=== PATIENT | female | born 1970 | race Caucasian/White ===

== ENCOUNTER → 2017-05-29 15:25 | Outpatient (CLI) | payer MEDICAID, SELFPAY ==
--- NOTE | 2017-05-29 15:41 | MM_ITS ---
MM Dig screening mamm BI w/CAD CAD Screening ORDERING PHYSICIAN : Cedric Sanchez MD PATIENT AGE: 46 years GENDER: Female COMPARISON: Previous mammograms: June 2012 . & INDICATION: Screening. 46-year-old. No hormones no new complaints. Noncontributory family history. . TECHNIQUE: Standard CC and MLO images were obtained. R2 CAD reviewed. FINDINGS: Mild/ Moderate breast density. Mild asymmetry but no. Dominant mass nor suspicious calcifications in either breast. No significant or concerning new findings RIGHT BREAST:Stable. Follow up one year LEFT BREAST:No significant new findings. More evident fibroglandular elements are seen towards upper-outer quadrant of the left breast but the pattern is unchanged since 2014 MLO views. No significant new findings. Follow-up one year adequate IMPRESSION: Stable mild asymmetry with no significant new findings. BI-RADS Category: 2 Benign Finding(s) RECOMMENDED FOLLOW-UP: 1YR - 1 YEAR FOLLOW-UP Follow-up in one year recommended (A letter has been sent to the patient regarding results of the study.) .
== END ==
PROVIDERS: Family Provider Emergency Medicine; PCP Emergency Medicine; Visit Provider Emergency Medicine
DX: Z12.31 Encounter for screening mammogram for malignant neoplasm of breast (principal)
CPT/HCPCS: 77067

== ENCOUNTER → 2017-06-02 14:34 | Outpatient (CLI) | payer MEDICAID, SELFPAY ==
[2017-06-02 15:18] LABS: Amphetamine/Metha Screen,Urine Negative ng/mL (<1000); Barbiturates Screen,Urine Negative ng/mL (<200); Benzodiazepines Screen,Urine Negative ng/mL (200); Cannabinoid Screen,Urine Negative ng/mL (<50); Cocaine Screen,Urine Negative ng/g (<300); Methadone Screen,Urine Negative ng/mL (<300); Opiate Screen,Urine Positive ng/mL (<300); Phencyclidine Screen,Urine Negative ng/mL (<25)
[2017-06-17 10:16] LABS: Alprazolam Negative (Cutoff=100); Benzodiazepines Negative ng/mL (Cutoff=100); Clonazepam Negative (Cutoff=100); Codeine Negative (Cutoff=100); Flurazepam Negative (Cutoff=100); Hydrocodone Positive (.); Hydromorphone Negative (Cutoff=100); Lorazepam Negative (Cutoff=100); Midazolam Negative (Cutoff=100); Morphine Negative (Cutoff=100); Temazepam Negative (Cutoff=100); Triazolam Negative (Cutoff=100)
[2017-06-17 13:35] LABS: Opiates Positive (.)
== END ==
PROVIDERS: Nurse Practitioner Family; Visit Provider Emergency Medicine
DX: F41.9 Anxiety disorder, unspecified (principal)
CPT/HCPCS: 80305; 80361; G0480

== ENCOUNTER → 2017-06-11 13:45 | Outpatient (CLI) | payer MEDICAID, SELFPAY ==
--- NOTE | 2017-06-11 13:48 | XR_ITS ---
XR knee RT 4V HISTORY: ITS.REASON: right knee pain ORDERING PHYSICIAN: Pro Bran MD PATIENT AGE: 46 years COMPARISON: None FINDINGS: Weightbearing views are performed. There is slight decrease of the joint space medially. No other significant anomalies evident. No fracture or dislocation. No lytic or blastic change. Normal mineralization. IMPRESSION: Minimal osteoarthritic change medial compartment
--- NOTE | 2017-06-11 13:48 | XR_ITS ---
XR knee LT 4V HISTORY: ITS.REASON: left knee pain ORDERING PHYSICIAN: Pro Bran MD PATIENT AGE: 46 years COMPARISON: None FINDINGS: Weightbearing views are performed. No fracture or dislocation. No lytic or blastic change. Normal mineralization. No significant arthritic changes evident. No other significant findings IMPRESSION: Negative left Knee
== END ==
PROVIDERS: PCP Emergency Medicine; Visit Provider Orthopaedic Surgery
DX: M25.561 Pain in right knee (principal); M25.562 Pain in left knee
CPT/HCPCS: 73564

== ENCOUNTER 2017-06-11 15:00 | Outpatient (RCR) | payer MEDICAID, SELFPAY ==
--- NOTE | 2017-06-09 09:46 | HMH.PTOPEV ---
Rehab Outpatient Evaluation Rehab OP Evaluation Start: 06/09/17 09:31 Freq: Status: Active Protocol: Document 06/09/17 09:31 JUAN ANTONIO (Rec: 06/09/17 09:45 JUAN ANTONIO [id number]) Electronically Signed By Venkat Muñoz, PT 06/09/17 09:31 Outpatient Therapy Subjective History Subjective History Pt reports h/o chronic LBP beginning ~10-15 yrs ago, with long h/o of manual labor type work. Pt reports this current LBP exacerbation began ~1 month ago. Pt reports R sided LBP with R LE s/s from R hip/ glut mm area to R knee. Chief Complaint Pain Spasms Stiff Swelling Weakness Symptom Type Ache Throb Sharp Dull Stabbing Burning Numbness Tingling Shooting Symptoms Relieved By Nothing Symptoms Aggravated By Prone Supine Sitting Standing Physical Activity Twisting Walking Lifting Prior Functional Limitations Lifting Housework Standing Sitting Walking Bending/Stooping Current Functional Limitations Lifting Housework Standing Sitting Walking Bending/Stooping Symptom Description Constant and Continuous Level of pain today (0-10) 8 Pain scale - at its best (0-10) 8 Pain scale - at its worst (0-10) 8 Lumbopelvic Eval Posture Thoracic Spine Posture Standing Position Flattened Lumbar Spine Posture Standing Position Flattened Assistive device Assistive Devices None / NA Palapation tenderness left lumbar spinal tenderness Yes: 1/4 paraspinal tenderness Yes: 1/4 buttock tenderness No right lumbar spinal tenderness Yes: 3/4 paraspinal tenderness Yes: 3/4 buttock
== END 2017-06-11 15:01 | disposition home or self-care (01) ==
LOC: PT 15:00
PROVIDERS: Family Provider Emergency Medicine; PCP Emergency Medicine; Visit Provider Emergency Medicine
DX: M54.5 Low back pain (principal)
CPT/HCPCS: 97010; 97014; 97033; 97035; 97110; G0283

== ENCOUNTER → 2017-06-30 15:02 | Outpatient (CLI) | payer MEDICAID, SELFPAY ==
--- NOTE | 2017-06-30 15:06 | MR_ITS ---
MR knee RT wo con Right knee MRI Ordering Physician: Pro Bran MD Patient Age: 46 years: Female HISTORY: Right knee pain.6 months. Lateral knee pain. Prior surgery on the knee nonspecified. TECHNIQUE: Multiplanar multisequence imaging on 1.5T MR. COMPARISON :December 2013 right knee plain films and 06/11/2017 4 view right knee weightbearing FINDINGS : ACL tear ACL complete tear towards femoral insertion. Resulting some ill-defined tissue seen here... Thin horizontal residual ACL fragment likely present passing over the tibial spines best seen image 13, and 12.. Alternatively less likely but cannot totally exclude a displaced meniscal fragment here.. The PCL is intact. The lateral meniscus is intact. Lateral compartment intact. Lateral collateral ligament intact. Medial collateral believe intact as well. .. Medial compartment,: Fairly well maintained with only question of borderline chondral thinning towards the medial margin of the joint. Perhaps some very minor chondral edema and signal changes. Equivocal.. Slight sharpening margins of joint most evident about medial compartment reflecting early degenerative changes along with scant narrowing medial compartment Abnormal Medial meniscus. Very small diminutive body & posterior horn of medial meniscus either from previous meniscectomy and/ or meniscal degeneration and tear. -. Favor the lateral horizontal linear density passage of the tibial spines most likely related to torn ACL fragment.-Less likely meniscal fragment Sagittal image 13, 12. Patellofemoral joint intact with with perhaps scant chondral scuffing along posterior patella. Most suspect towards Lateral facet of patella. Quadriceps tendon and patellar tendon appear satisfactory. The superior normal position of patella most likely reflects the for extension of the positioning for the scan.. Small joint effusion with tiny if any Sesay cyst IMPRESSION: 1. ACL tear 2... Abnormal small medial meniscus Small residual diminutive body & posterior horn medial meniscus.-Question possible previous meniscectomy-requires clinical correlation.... Additional Degeneration & suspect additional minimal meniscal tear/fraying currently at free margin body medial meniscus; as well as possible minor tear at residual posterior horn (, most evident towards the posterior meniscal root.) 3. Early degenerative changes. With Scant narrowing at medial margin medial compartment 4. Small joint effusion.
== END ==
PROVIDERS: Family Provider Emergency Medicine; PCP Emergency Medicine; Visit Provider Orthopaedic Surgery
DX: M25.561 Pain in right knee (principal)
CPT/HCPCS: 73721

== ENCOUNTER → 2017-07-01 09:47 | Outpatient (REF) | payer MEDICAID, SELFPAY ==
[2017-07-01 21:52] LABS: Amphetamine/Metha Screen,Urine Negative ng/mL (<1000); Barbiturates Screen,Urine Negative ng/mL (<200); Benzodiazepines Screen,Urine Positive ng/mL (200); Cannabinoid Screen,Urine Negative ng/mL (<50); Cocaine Screen,Urine Negative ng/g (<300); Methadone Screen,Urine Negative ng/mL (<300); Opiate Screen,Urine Positive ng/mL (<300); Phencyclidine Screen,Urine Negative ng/mL (<25)
== END ==
LOC: LAB 09:47
PROVIDERS: Visit Provider Nurse Practitioner Family
DX: Z79.899 Other long term (current) drug therapy (principal)
CPT/HCPCS: 80305

== ENCOUNTER → 2017-07-28 14:23 | Outpatient (POV) | payer MEDICAID, SELFPAY ==
[2017-07-28 15:13] VITALS: BP 135/114; PULSE 72; RESP 22; O2SAT 96; BMI 24.2
--- NOTE | 2017-07-28 17:37 | HMH.PMCON ---
Assessment and Plan (1) Sacroiliitis Current visit: Yes Status: Chronic Category: Medical Code(s): M46.1 - Sacroiliitis, not elsewhere classified - Assessment and plan all Dx Assessment and Plan for all problems:: We will start with bilateral SI joint injections. We will reassess her pain after this. If she does not get relief from these injections we will order MRI to discern back pathology. Patient is extremely tender over bilateral SI joints she has failed medication, anti-inflammatories, home stretching regimen. This note was dictated using voice recognition software may contain errors or omissions HPI - Data of Consult Consult date: 07/28/17 Requesting Physician: Soledad Benton APRN Primary Care Provider: Cedric Sanchez MD Family Provider: Cedric Sanchez MD - Consult Narrative Reason for consult: Chronic low back pain and right leg pain History of present illness: Ms. Siddiqi is a 46 year old female who presents today to discuss her chronic low back pain. Patient rates the pain an 8 out of 10 today. Patient states that she does not get much relief from Klonopin or [place]. Patient states she does get some relief from Neurontin. Patient states that her right leg has numbness and tingling and sensation loss. Patient states that standing increases her pain. She states nothing truly decreases her pain. Patient has no imaging at this time. Patient has tried physical therapy. Patient does get some relief from TENS unit use. Patient is extremely tender over her SI joints. CC: Soledad Benton APRN [facility] History I have reviewed the patient's past medical history: Yes Medical History: Reports:: Anxiety, Hypertension Other Surgeries: Yes: Hysterectomy-Total Amputation: No Fractures: No - *Social History Educational Level: Attended High School Smoking Status: Current every day smoker Tobacco Type: cigarettes # Packs/Day (cigarettes): 1 Alcohol Intake: never Substance Use Type: marijuana Occupational Status: unemployed, disabled Housing: apartment Household Members: family - Psychiatric History Expresses thoughts of harming self/others: None Suicide Plan Description: No Plan Pschychiatric History:: Reports:: Anxiety *Family Hx:: Cancer Review of Systems - Review of Systems ROS General: no recent weight change, no fever, no sleep disturbances Respiratory: no cough, no shortness of air, no recurring pulmonary infections Cardiovascular/Peripheral Vascular: No chest pain, No palpitations, no edema, no shortness of breath. Gastrointestinal: no incontinence, normal bowel movements reported Genitourinary: no incontinence Musculoskeletal: SI joint pain, low back pain, leg pain Psychiatric: normal mood/ affect Neurological: [denies weakness in extremities], [denies balance issues] Meds Home Medications Medication Instructions Recorded Confirmed Type gabapentin 800 mg tablet 800 mg PO TID 05/30/17 History Sertraline HCl [Zoloft] 50 mg PO DAILY 07/28/17 07/28/17 History clonazePAM [Klonopin] 0.5 mg PO BID 07/28/17 07/28/17 History Allergies Allergy/AdvReac Type Severity Reaction Status Date / Time CODEINE Allergy Unknown Uncoded 06/11/17 14:38 Objective Vital signs: Pulse Resp BP Pulse Ox 72 22 135/114 96 07/28/17 15:13 07/28/17 15:13 07/28/17 15:13 07/28/17 15:13 Narrative: Physical Exam General: Alert and oriented x3, no acute distress, pleasant and cooperative, [on room air] Lungs: Resps E/U, Symmetrical chest expansion, Eyes: PERRL Musculoskeletal: Flexion and extension of lumbar spine somewhat guarded secondary to pain, deep tendon reflexes normal, strength in upper and lower extremities [5/5], normal gait noted, positive Kamila's test bilaterally, extreme point tenderness over bilateral SI joint Neurological: speech clear, guillotine trimmer equal, no gross sensory deficits Opioid Risk Tool - Opioid Risk Tool-Fema
--- NOTE | 2017-07-28 17:41 | P.CONS_ITS ---
Assessment and Plan (1) Sacroiliitis Current visit: Yes Status: Chronic Category: Medical Code(s): M46.1 - Sacroiliitis, not elsewhere classified - Assessment and plan all Dx Assessment and Plan for all problems:: We will start with bilateral SI joint injections. We will reassess her pain after this. If she does not get relief from these injections we will order MRI to discern back pathology. Patient is extremely tender over bilateral SI joints she has failed medication, anti-inflammatories, home stretching regimen. This note was dictated using voice recognition software may contain errors or omissions HPI - Data of Consult Consult date: 07/28/17 Requesting Physician: Soledad Benton APRN Primary Care Provider: Cedric Sanchez MD Family Provider: Cedric Sanchez MD - Consult Narrative Reason for consult: Chronic low back pain and right leg pain History of present illness: Ms. Siddiqi is a 46 year old female who presents today to discuss her chronic low back pain. Patient rates the pain an 8 out of 10 today. Patient states that she does not get much relief from Klonopin or [place]. Patient states she does get some relief from Neurontin. Patient states that her right leg has numbness and tingling and sensation loss. Patient states that standing increases her pain. She states nothing truly decreases her pain. Patient has no imaging at this time. Patient has tried physical therapy. Patient does get some relief from TENS unit use. Patient is extremely tender over her SI joints. CC: Soledad Benton APRN [facility] History I have reviewed the patient's past medical history: Yes Medical History: Reports:: Anxiety, Hypertension Other Surgeries: Yes: Hysterectomy-Total Amputation: No Fractures: No - *Social History Educational Level: Attended High School Smoking Status: Current every day smoker Tobacco Type: cigarettes # Packs/Day (cigarettes): 1 Alcohol Intake: never Substance Use Type: marijuana Occupational Status: unemployed, disabled Housing: apartment Household Members: family - Psychiatric History Expresses thoughts of harming self/others: None Suicide Plan Description: No Plan Pschychiatric History:: Reports:: Anxiety *Family Hx:: Cancer Review of Systems - Review of Systems ROS General: no recent weight change, no fever, no sleep disturbances Respiratory: no cough, no shortness of air, no recurring pulmonary infections Cardiovascular/Peripheral Vascular: No chest pain, No palpitations, no edema, no shortness of breath. Gastrointestinal: no incontinence, normal bowel movements reported Genitourinary: no incontinence Musculoskeletal: SI joint pain, low back pain, leg pain Psychiatric: normal mood/ affect Neurological: [denies weakness in extremities], [denies balance issues] Meds Home Medications Medication Instructions Recorded Confirmed Type gabapentin 800 mg tablet 800 mg PO TID 05/30/17 History Sertraline HCl [Zoloft] 50 mg PO DAILY 07/28/17 07/28/17 History clonazePAM [Klonopin] 0.5 mg PO BID 07/28/17 07/28/17 History Allergies Allergy/AdvReac Type Severity Reaction Status Date / Time CODEINE Allergy Unknown Uncoded 06/11/17 14:38 Objective Vital signs: Pulse Resp BP Pulse Ox 72 22 135/114 96 07/28/17 15:13 07/28/17 15:13 07/28/17 15:13 07/28/17 15:13 Narrative:
== END ==
PROVIDERS: Family Provider Emergency Medicine; PCP Emergency Medicine; Visit Provider Clinical Nurse Specialist Family Health
DX: M46.1 Sacroiliitis, not elsewhere classified (principal)
CPT/HCPCS: 99202

== ENCOUNTER → 2017-07-29 13:35 | Outpatient (CLI) | payer MEDICAID, SELFPAY ==
[2017-08-06 10:15] LABS: Alprazolam Negative (Cutoff=100); Benzodiazepines Positive ng/mL (Cutoff=100); Clonazepam Negative (Cutoff=100); Codeine Negative (Cutoff=100); Flurazepam Negative (Cutoff=100); Hydrocodone Positive (.); Hydromorphone Negative (Cutoff=100); Lorazepam Negative (Cutoff=100); Midazolam Negative (Cutoff=100); Morphine Negative (Cutoff=100); Temazepam Positive (.); Triazolam Negative (Cutoff=100)
[2017-08-06 10:23] LABS: Opiates Positive (.)
== END ==
PROVIDERS: Visit Provider Nurse Practitioner Family
DX: Z79.899 Other long term (current) drug therapy (principal)
CPT/HCPCS: 80346; 80361; 80365; G0480

== ENCOUNTER → 2017-07-29 15:30 | Outpatient (REF) | payer MEDICAID, SELFPAY ==
[2017-07-29 20:05] LABS: Amphetamine/Metha Screen,Urine Negative ng/mL (<1000); Barbiturates Screen,Urine Negative ng/mL (<200); Benzodiazepines Screen,Urine Positive ng/mL (200); Cannabinoid Screen,Urine Positive ng/mL (<50); Cocaine Screen,Urine Negative ng/g (<300); Methadone Screen,Urine Negative ng/mL (<300); Opiate Screen,Urine Negative ng/mL (<300); Phencyclidine Screen,Urine Negative ng/mL (<25)
== END ==
LOC: LAB 15:30
PROVIDERS: Visit Provider Nurse Practitioner Family
DX: Z79.899 Other long term (current) drug therapy (principal)
CPT/HCPCS: 80305

== ENCOUNTER → 2017-09-15 11:20 | Outpatient (POV) | payer MEDICAID, SELFPAY ==
[2017-09-15 11:29] VITALS: BP 136/95; PULSE 84; RESP 20; TEMP 36.7; O2SAT 98; BMI 22.2
--- NOTE | 2017-09-15 11:37 | HMH.PAINSOAP ---
[facility] Pain Management SOAP Note Subjective:: Patient is a pleasant 46-year-old white female who presents today after her insurance denied her SI joint injections. Patient has had no relief in her pain. Patient states that most of her pain is in her low back and her right leg. Patient has numbness and tingling and sensation loss. Patient states that standing increases her pain. Patient does not have any recent MRI imaging of her low back. Patient was on gabapentin from her primary care. However she states that he discontinued this due to her coming to our office. Patient was having some side effects to gabapentin and she was at a high dose. Patient is interested if there is any other medications that would help her. Rates her pain a 6 out of 10 today. Patient states she works full-time. ROS General: no recent weight change, no fever, no sleep disturbances Respiratory: no cough, no shortness of air, no recurring pulmonary infections Cardiovascular/Peripheral Vascular: No chest pain, No palpitations, no edema, no shortness of breath. Gastrointestinal: no incontinence, normal bowel movements reported Genitourinary: no incontinence Musculoskeletal: Back pain, right leg pain Psychiatric: normal mood/ affect Neurological: Weakness in right lower extremity at times, [denies balance issues] Objective:: Physical Exam General: Alert and oriented x3, no acute distress, pleasant and cooperative, [on room air] Lungs: Resps E/U, Symmetrical chest expansion, Eyes: PERRL Musculoskeletal: Flexion and extension of lumbar spine somewhat guarded secondary to pain, deep tendon reflexes normal, strength in upper and lower extremities [5/5], [abnormal gait noted] Neurological: speech clear, wood products manufacturer equal, no gross sensory deficits Assessment:: Low back pain, bilateral leg pain Plan:: We will switch the patient to Lyrica 75 mg 1 p.o. twice daily. We will start her with a 2 week trial dose. Patient and I discussed the risks and benefits of the medication. Patient and I also discussed titrating as needed. Patient is to discontinue her gabapentin. Patient was having side effects her gabapentin along with not adequate pain relief at 800 mg 1 p.o. 3 times daily. I will follow-up with this patient after her MRI of her lumbar spine. I believe that this would be beneficial in determining pathology. Patient is to call if the Lyrica works for her. On review patient had a urine drug screen positive for marijuana and several other substances that she was not prescribed. If we are going to be continuing with the Lyrica prescription she will have to come and produce a urine drug screen specimen. This note was dictated using voice recognition software and may contain errors or omissions
--- NOTE | 2017-09-15 11:41 | P.CONS_ITS ---
[facility] Pain Management SOAP Note Subjective:: Patient is a pleasant 46-year-old white female who presents today after her insurance denied her SI joint injections. Patient has had no relief in her pain. Patient states that most of her pain is in her low back and her right leg. Patient has numbness and tingling and sensation loss. Patient states that standing increases her pain. Patient does not have any recent MRI imaging of her low back. Patient was on gabapentin from her primary care. However she states that he discontinued this due to her coming to our office. Patient was having some side effects to gabapentin and she was at a high dose. Patient is interested if there is any other medications that would help her. Rates her pain a 6 out of 10 today. Patient states she works full-time. ROS General: no recent weight change, no fever, no sleep disturbances Respiratory: no cough, no shortness of air, no recurring pulmonary infections Cardiovascular/Peripheral Vascular: No chest pain, No palpitations, no edema, no shortness of breath. Gastrointestinal: no incontinence, normal bowel movements reported Genitourinary: no incontinence Musculoskeletal: Back pain, right leg pain Psychiatric: normal mood/ affect Neurological: Weakness in right lower extremity at times, [denies balance issues ] Objective:: Physical Exam General: Alert and oriented x3, no acute distress, pleasant and cooperative, [ on room air] Lungs: Resps E/U, Symmetrical chest expansion, Eyes: PERRL Musculoskeletal: Flexion and extension of lumbar spine somewhat guarded secondary to pain, deep tendon reflexes normal, strength in upper and lower extremities [5/5], [abnormal gait noted] Neurological: speech clear, cadd technician equal, no gross sensory deficits Assessment:: Low back pain, bilateral leg pain Plan:: We will switch the patient to Lyrica 75 mg 1 p.o. twice daily. We will start her with a 2 week trial dose. Patient and I discussed the risks and benefits of the medication. Patient and I also discussed titrating as needed. Patient is to discontinue her gabapentin. Patient was having side effects her gabapentin along with not adequate pain relief at 800 mg 1 p.o. 3 times daily. I will follow-up with this patient after her MRI of her lumbar spine. I believe that this would be beneficial in determining pathology. Patient is to call if the Lyrica works for her. On review patient had a urine drug screen positive for marijuana and several other substances that she was not prescribed. If we are going to be continuing with the Lyrica prescription she will have to come and produce a urine drug screen specimen. This note was dictated using voice recognition software and may contain errors or omissions
--- NOTE | 2017-09-16 14:29 | PC.PHONENOTE ---
09/15/17-called in Rx for Lyrica 75mg BID x14 days per provider order
== END ==
PROVIDERS: Family Provider Emergency Medicine; PCP Emergency Medicine; Visit Provider Clinical Nurse Specialist Family Health
DX: M54.5 Low back pain (principal); M79.605 Pain in left leg; M79.604 Pain in right leg
CPT/HCPCS: 99212

== ENCOUNTER → 2017-09-22 09:34 | Outpatient (POV) | payer MEDICAID, SELFPAY ==
[2017-09-22 09:42] VITALS: BP 145/107; PULSE 90; RESP 18; TEMP 35.6; O2SAT 99; BMI 22.4
--- NOTE | 2017-09-22 10:12 | HMH.PAINSOAP ---
[facility] Pain Management SOAP Note Subjective:: This patient is a pleasant 46-year-old white female who we are treating for low back pain with lumbar radicular symptoms. We started this patient on Lyrica 75 mg twice a day and she was to get discontinue her gabapentin. She is not getting any benefit from the Lyrica and her medical card is not covering the Lyrica. She would like to go back to her gabapentin 800 mg 3 times a day as it was giving her more relief of her pain symptoms. We will discontinue her Lyrica and restart her gabapentin 800 mg 3 times a day. Objective:: Alert and oriented ?3 in no acute distress. Patient does have an antalgic gait. Motor strength of the lower extremities is 5/5. There is no gross sensory deficit. Assessment:: Low back pain with lumbar radiculopathy symptoms. Plan:: This patient is not getting any benefit from her Lyrica. Also her medical card does not cover Lyrica. She would like to go back to her gabapentin. We will discontinue her Lyrica at this time and restart her gabapentin at 800 mg 3 times a day. She is scheduled for an MRI of lumbar spine this week. We will follow-up with her after her MRI.
[2017-09-22 10:43] LABS: Amphetamine/Metha Screen,Urine Negative ng/mL (<1000); Barbiturates Screen,Urine Negative ng/mL (<200); Benzodiazepines Screen,Urine Positive ng/mL (200); Cannabinoid Screen,Urine Positive ng/mL (<50); Cocaine Screen,Urine Negative ng/g (<300); Methadone Screen,Urine Negative ng/mL (<300); Opiate Screen,Urine Positive ng/mL (<300); Phencyclidine Screen,Urine Negative ng/mL (<25)
[2017-09-30 17:13] LABS: Codeine Negative (Cutoff=100); Hydrocodone Positive (.); Hydromorphone Positive (.); Morphine Negative (Cutoff=100)
[2017-10-01 04:10] LABS: Cannabinoid Positive (.); Carboxy THC (GC/MS) 133 ng/mL (Cutoff=10)
[2017-10-02 06:15] LABS: Opiates Positive (.)
== END ==
PROVIDERS: Family Provider Emergency Medicine; PCP Emergency Medicine; Visit Provider Anesthesiology
DX: M54.16 Radiculopathy, lumbar region (principal)
CPT/HCPCS: 80305; 80349; 80361; 80365; 99212; G0480

== ENCOUNTER → 2017-09-24 14:23 | Outpatient (CLI) | payer MEDICAID, SELFPAY ==
--- NOTE | 2017-09-24 14:30 | MR_ITS ---
MR lumbar spine wo con, MR 3-d myelogram/MRCP HISTORY: Rt leg pain, numbness, and tingling. . ITS.REASON: BACK PAIN ORDERING PHYSICIAN: Boom Slaughter MD PATIENT AGE: 46 years TECHNIQUE: Standard multiplanar multiecho sequences are performed without contrast. 3-D MIP and myelographic images are also rendered and reviewed FINDINGS: There is normal alignment. The spinal cord ends at the T12-L1 level. L1-L2, L2-L3, and L3-L4 have an unremarkable appearance. L4-5: Mild concentric bulging disc along with facet and ligamentum flavum hypertrophy with mild to moderate bilateral foraminal narrowing L5-S1: Unremarkable. No disc herniation or canal stenosis. Incidental note is made of a T2 hyperintensity in the right hepatic lobe measuring 16 mm. Previous ultrasound suggested 1.5 cm hyperechoic focus in the right lobe of the liver. This may be related to a hemangioma. IMPRESSION: 1. Mild bulging disc L4-L5 with facet hypertrophic change and moderate bilateral foraminal narrowing 2. Otherwise negative MRI of the lumbar spine. 3. 15 mm T2 hyperintense lesion of the right hepatic lobe which may be related to a hemangioma as previously described on a prior ultrasound of the right upper quadrant. Follow-up ultrasound suggested to confirm stability
== END ==
PROVIDERS: Family Provider Emergency Medicine; PCP Emergency Medicine; Visit Provider Anesthesiology
DX: M54.5 Low back pain (principal)
CPT/HCPCS: 72148; 76376

== ENCOUNTER → 2017-10-06 10:19 | Outpatient (POV) | payer MEDICAID, SELFPAY ==
[2017-10-06 10:25] VITALS: BP 104/61; PULSE 76; RESP 18; O2SAT 98; BMI 22.6
--- NOTE | 2017-10-06 10:36 | HMH.PAINSOAP ---
[facility] Pain Management SOAP Note Subjective:: Is a 46-year-old white female who presents today for follow-up. Patient has been at night SI joint injections in the past. Patient got a recent MRI that was unremarkable except for a mild bulging disc at L4-L5. Patient was receiving [place] from her primary care. However she states he is no longer prescribing it for her. We had given her some gabapentin. Patient states it helps however her urine drug screen at her last 2 visits have been positive for marijuana. Patient and I discussed this and we will not be able to continue her controlled substances. I asked the patient if she was interested in injective therapy. Patient is unsure at this time. Patient currently works in a alf. Patient would like to make a follow-up appointment. I discussed with her that potentially if she tested negative for marijuana for up to 6 months that we would be able to return her gabapentin to her. ROS General: no recent weight change, no fever, no sleep disturbances Respiratory: no cough, no shortness of air, no recurring pulmonary infections Cardiovascular/Peripheral Vascular: No chest pain, No palpitations, no edema, no shortness of breath. Gastrointestinal: no incontinence, normal bowel movements reported Genitourinary: no incontinence Musculoskeletal: Back pain, right leg pain Psychiatric: normal mood/ affect Neurological: [denies weakness in extremities], [denies balance issues] Objective:: Physical Exam General: Alert and oriented x3, no acute distress, pleasant and cooperative, [on room air] Lungs: Resps E/U, Symmetrical chest expansion, Eyes: PERRL Musculoskeletal: Flexion and extension of lumbar spine somewhat guarded secondary to pain, deep tendon reflexes normal, strength in upper and lower extremities [5/5], antalgic gait noted Neurological: speech clear, slide forming machine tender equal, no gross sensory deficits Assessment:: Back pain, bilateral SI joint pain Plan:: Patient will make a follow-up appointment. Patient is going to consider options in regards to how she would like to proceed with her plan of care. Patient will not be prescribed any controlled substances from our office she will also have any refills of her gabapentin canceled. Patient and I did discuss that potentially if she tested negative for marijuana for 6 months we would perhaps re-start her gabapentin. This note was dictated using voice recognition software and may contain errors or omissions
--- NOTE | 2017-10-06 10:39 | P.CONS_ITS ---
[facility] Pain Management SOAP Note Subjective:: Is a 46-year-old white female who presents today for follow-up. Patient has been at night SI joint injections in the past. Patient got a recent MRI that was unremarkable except for a mild bulging disc at L4-L5. Patient was receiving Blanchard from her primary care. However she states he is no longer prescribing it for her. We had given her some gabapentin. Patient states it helps however her urine drug screen at her last 2 visits have been positive for marijuana. Patient and I discussed this and we will not be able to continue her controlled substances. I asked the patient if she was interested in injective therapy. Patient is unsure at this time. Patient currently works in a [employer]. Patient would like to make a follow-up appointment. I discussed with her that potentially if she tested negative for marijuana for up to 6 months that we would be able to return her gabapentin to her. ROS General: no recent weight change, no fever, no sleep disturbances Respiratory: no cough, no shortness of air, no recurring pulmonary infections Cardiovascular/Peripheral Vascular: No chest pain, No palpitations, no edema, no shortness of breath. Gastrointestinal: no incontinence, normal bowel movements reported Genitourinary: no incontinence Musculoskeletal: Back pain, right leg pain Psychiatric: normal mood/ affect Neurological: [denies weakness in extremities], [denies balance issues] Objective:: Physical Exam General: Alert and oriented x3, no acute distress, pleasant and cooperative, [ on room air] Lungs: Resps E/U, Symmetrical chest expansion, Eyes: PERRL Musculoskeletal: Flexion and extension of lumbar spine somewhat guarded secondary to pain, deep tendon reflexes normal, strength in upper and lower extremities [5/5], antalgic gait noted Neurological: speech clear, tire classifier equal, no gross sensory deficits Assessment:: Back pain, bilateral SI joint pain Plan:: Patient will make a follow-up appointment. Patient is going to consider options in regards to how she would like to proceed with her plan of care. Patient will not be prescribed any controlled substances from our office she will also have any refills of her gabapentin canceled. Patient and I did discuss that potentially if she tested negative for marijuana for 6 months we would perhaps re-start her gabapentin. This note was dictated using voice recognition software and may contain errors or omissions
== END ==
PROVIDERS: Family Provider Emergency Medicine; PCP Emergency Medicine; Visit Provider Clinical Nurse Specialist Family Health
DX: M46.1 Sacroiliitis, not elsewhere classified (principal)
CPT/HCPCS: 99212

== ENCOUNTER → 2017-12-23 10:07 | Outpatient (CLI) | payer MEDICAID, SELFPAY ==
--- NOTE | 2017-12-23 10:09 | XR_ITS ---
XR hand RT min 3V HISTORY: Follow-up fracture ITS.REASON: RT BOXER FRACTURE ORDERING PHYSICIAN: Aguilar Machado MD PATIENT AGE: 47 years COMPARISON: 12/07/2017 FINDINGS: Mildly displaced boxer's fracture once again noted involving distal aspect of the fifth metacarpal. There are 2 mm radial displacement of the distal fracture fragment with minimal anterior angulation of the distal fracture fragment similar to the previous exam. No significant callus formation evident. IMPRESSION: No change minimal displaced boxer's fracture of the fifth metacarpal
== END ==
PROVIDERS: PCP Emergency Medicine; Visit Provider Orthopaedic Surgery
DX: S62.339D Displaced fracture of neck of unspecified metacarpal bone, subsequent encounter for fracture with routine healing (principal)
CPT/HCPCS: 73130

== ENCOUNTER → 2018-02-10 11:16 | Outpatient (REF) | payer MEDICAID, SELFPAY ==
[2018-02-10 14:16] LABS: Amphetamine/Metha Screen,Urine Negative ng/mL (<1000); Barbiturates Screen,Urine Negative ng/mL (<200); Benzodiazepines Screen,Urine Positive ng/mL (<200); Cannabinoid Screen,Urine Negative ng/mL (<50); Cocaine Screen,Urine Negative ng/mL (<300); Methadone Screen,Urine Negative ng/mL (<300); Opiate Screen,Urine Negative ng/mL (<300); Phencyclidine Screen,Urine Negative ng/mL (<25)
[2018-02-14 12:10] LABS: Alprazolam Negative (Cutoff=100); Benzodiazepines Negative ng/mL (Cutoff=100); Clonazepam Negative (Cutoff=100); Flurazepam Negative (Cutoff=100); Lorazepam Negative (Cutoff=100); Midazolam Negative (Cutoff=100); Temazepam Negative (Cutoff=100); Triazolam Negative (Cutoff=100)
== END ==
LOC: LAB 11:16
PROVIDERS: Visit Provider Nurse Practitioner Family
DX: M54.17 Radiculopathy, lumbosacral region (principal); Z79.899 Other long term (current) drug therapy
CPT/HCPCS: 80305; 80346